=== PATIENT | female | born 1990 | race American Indian/Alaskan Native ===

== ENCOUNTER 2017-07-16 21:39 | Emergency (ER) | payer MEDICAID ==
[2017-07-16 23:29] LABS: Basophils % (Auto) 0.4 % (0.0-1.8); Eosinophils % (Auto) 2.5 % (0.0-4.3); Hematocrit 39.4 % (30.3-42.9); Hemoglobin 12.8 gm/dl (10.1-14.3); Mean Corpuscular HGB Conc 32 % (30-34); Mean Corpuscular Hemoglobin 26 pg (28-32); Mean Corpuscular Volume 81 fl (79-97); Platelet Count 270 K/mm3 (140-440); Red Blood Count 4.89 M/mm3 (3.65-5.03)
[2017-07-16 23:39] LABS: Anion Gap 18 mmol/L; BUN/Creatinine Ratio 12.85; Blood Urea Nitrogen 9 mg/dL (7-17); Calcium 9.1 mg/dL (8.4-10.2); Carbon Dioxide 23 mmol/L (22-30); Chloride 101.9 mmol/L (98-107); Glucose 100 mg/dL (65-100); Potassium 4.3 mmol/L (3.6-5.0); Sodium 139 mmol/L (137-145)
[2017-07-17 00:52] LABS: Bacteria,Urine 1+ /HPF (Negative); Bilirubin,Urine NEG (Negative); Blood,Urine NEG (Negative); Ketones,Urine TR mg/dL (Negative); Leukocyte Esterase,Urine NEG (Negative); Mucus,Urine 3+ /HPF; Nitrite,Urine NEG (Negative)
[2017-07-17 09:22] VITALS: BP 108/75
--- NOTE | 2017-07-17 10:06 | Emergency Department Report ---
ED General Adult HPI - General Chief complaint: Headache Stated complaint: POSS PREG/NAUSEA/STEPHENS/DIZZINESS Time Seen by Provider: 07/17/17 09:35 Source: patient Mode of arrival: Ambulatory Limitations: No Limitations - History of Present Illness Initial comments: Patient states that over the last 2 days she has had a right-sided headache. She's not had similar headaches like this before. She states that she has not gone to the physician or an emergency department for headaches in the past. However she tells me she has had an MRI and a CT of her head. She states this was done for sinus problems. The patient denies fever chills or photophobia neck stiffness or soreness. She has not had any focal neurological change. She states that she did not have an acute onset of the pain nor was it in anyway thunderclap. The headache is moderate claims she has never had a headache like this before. For some reason although the patient has an IUD. She believes she is having " symptoms". -: Gradual, days(s) Location: head Radiation: non-radiation Severity scale (0 -10): 0 Quality: aching Consistency: intermittent Improves with: none Worsens with: none Associated Symptoms: denies other symptoms Treatments Prior to Arrival: none - Related Data Previous Rx's Medication Instructions Recorded Last Taken Type Butalb/Acetamin/Caff 50-325-40 1 tab PO Q6HR PRN #14 tab 07/17/17 Unknown Rx [Fioricet] Allergies Allergy/AdvReac Type Severity Reaction Status Date / Time shellfish derived Allergy Swelling Verified 11/15/14 23:49 ED Review of Systems ROS: Stated complaint: POSS PREG/NAUSEA/STEPHENS/DIZZINESS Other details as noted in HPI Constitutional: denies: chills, fever Eyes: denies: eye pain, eye discharge, vision change ENT: denies: ear pain, throat pain Respiratory: denies: cough, shortness of breath, wheezing Cardiovascular: denies: chest pain, palpitations Endocrine: no symptoms reported Gastrointestinal: denies: abdominal pain, nausea, diarrhea Genitourinary: denies: urgency, dysuria, discharge Musculoskeletal: denies: back pain, joint swelling, arthralgia Skin: denies: rash, lesions Neurological: headache. denies: weakness, paresthesias Psychiatric: denies: anxiety, depression Hematological/Lymphatic: denies: easy bleeding, easy bruising ED Past Medical Hx - Past Medical History Previous Medical History?: Yes Hx Hypertension: No Hx Congestive Heart Failure: No Hx Diabetes: No Hx Deep Vein Thrombosis: No Hx Renal Disease: No Hx Sickle Cell Disease: No Hx Seizures: No Hx Asthma: No Hx COPD: No Hx HIV: No Additional medical history: chronic left ankle pain, Fx 2006 - Surgical History Past Surgical History?: Yes Hx Breast Surgery: Yes (reduction 2006) - Social History Smoking Status: Current Every Day Smoker Substance Use Type: None - Medications Home Medications: Home Medications Medication Instructions Recorded Confirmed Last Taken Type Butalb/Acetamin/Caff 50-325-40 1 tab PO Q6HR PRN #14 tab 07/17/17 Unknown Rx [Fioricet] ED Physical Exam - General Limitations: No Limitations General appearance: alert, in no apparent distress - Head Head exam: Present: atraumatic, normocephalic - Eye Eye exam: Present: normal appearance, PERRL, EOMI. Absent: scleral icterus - ENT ENT exam: Present: mucous membranes moist - Neck Neck exam: Present: normal inspection - Respiratory Respiratory exam: Present: normal lung sounds bilaterally. Absent: respiratory distress - Cardiovascular Cardiovascular Exam: Present: regular rate, normal rhythm. Absent: systolic murmur, diastolic murmur, rubs, gallop - GI/Abdominal GI/Abdominal exam: Present: soft, normal bowel sounds. Absent: distended, tenderness, guarding, rebound, rigid - Extremities Exam Extremities exam: Present: normal inspection - Back Exam Back exam: Present: normal inspection - Neurological Exam Neurological exam: Present: alert, oriented X3, CN II-XII intact, normal gait, other (cerebellar testing was normal). Absent: motor sensory deficit - Psychiatric Psychiatric exam: Present: normal affect, normal mood - Skin Skin exam: Present: warm, dry, intact, normal color. Absent: rash ED Course Vital Signs 07/16/17 07/17/17 07/17/17 22:42 03:32 05:17 Temperature 98.3 F 98.8 F 97.9 F Pulse Rate 89 83 68 Respiratory 18 18 18 Rate Blood Pressure 114/74 118/72 Blood Pressure 97/64 [Left] O2 Sat by Pulse 100 100 99 Oximetry 07/17/17 07/17/17 07/17/17 05:18 06:44 09:21 Temperature 98.7 F Pulse Rate 62 68 Respiratory 18 18 16 Rate Blood Pressure Blood Pressure 100/52 108/75 [Left] O2 Sat by Pulse 98 99 Oximetry - Reevaluation(s) Reevaluation #1: Patient is given Toradol. Her symptoms improved. Her CT showed no acute process. 07/17/17 12:22 ED Medical Decision Making - Lab Data Result diagrams: 07/16/17 23:16 07/16/17 23:16 Laboratory Results - last 24 hr 07/16/17 07/16/17 07/16/17 23:16 23:16 23:16 WBC 10.0 RBC 4.89 Hgb 12.8 Hct 39.4 MCV 81 MCH 26 L MCHC 32 RDW 15.0 Plt Count 270 Lymph % (Auto) 33.3 [place] % (Auto) 8.8 H Eos % (Auto) 2.5 Baso % (Auto) 0.4 Lymph # 3.3 [place] # 0.9 H Eos # 0.2 Baso # 0.0 Seg Neutrophils % 55.0 Seg Neutrophils # 5.5 Sodium 139 Potassium 4.3 Chloride 101.9 Carbon Dioxide 23 Anion Gap 18 BUN 9 Creatinine 0.7 Estimated GFR > 60 BUN/Creatinine Ratio 12.85 Glucose 100 Calcium 9.1 HCG, Qual Negative Urine Color Urine Turbidity Urine pH Ur Specific [place] Urine Protein Urine Glucose (UA) Urine Ketones Urine Blood Urine Nitrite Urine Bilirubin Urine Urobilinogen Ur Leukocyte Esterase Urine WBC (Auto) Urine RBC (Auto) U Epithel Cells (Auto) Urine Bacteria (Auto) Calcium Oxalate Crystal Urine Mucus 07/16/17 Unknown WBC RBC Hgb Hct MCV MCH MCHC RDW Plt Count Lymph % (Auto) [place] % (Auto) Eos % (Auto) Baso % (Auto) Lymph # [place] # Eos # Baso # Seg Neutrophils % Seg Neutrophils # Sodium Potassium Chloride Carbon Dioxide Anion Gap BUN Creatinine Estimated GFR BUN/Creatinine Ratio Glucose Calcium HCG, Qual Urine Color Yellow Urine Turbidity Clear Urine pH 5.0 Ur Specific [place] 1.034 H Urine Protein 30 mg/dl Urine Glucose (UA) Neg Urine Ketones Tr Urine Blood Neg Urine Nitrite Neg Urine Bilirubin Neg Urine Urobilinogen 2.0 Ur Leukocyte Esterase Neg Urine WBC (Auto) 3.0 Urine RBC (Auto) 3.0 U Epithel Cells (Auto) 5.0 Urine Bacteria (Auto) 1+ Calcium Oxalate Crystal 2+ Urine Mucus 3+ - Radiology Data Radiology results: report reviewed interpreted by me: Incidental intracranial cyst. No acute process. Critical care attestation.: If time is entered above; I have spent that time in minutes in the direct care of this critically ill patient, excluding procedure time. ED Disposition Clinical Impression: Cephalalgia Qualifiers: Headache type: other vascular headache Qualified Code(s): G44.1 - Vascular headache, not elsewhere classified Disposition: TO HOME OR SELFCARE Is pt being admited?: No Does the pt Need Aspirin: No Condition: Stable Instructions: Acute Headache (ED) Additional Instructions: Return any acute change or problem. Prescriptions: Butalb/Acetamin/Caff 50-325-40 [Fioricet] 1 tab PO Q6HR PRN #14 tab PRN Reason: Headache Referrals: PRIMARY CARE, [Primary Care Provider] - 3-5 Days DILAN SOFIA MD [Staff Physician] - 3-5 Days Time of Disposition: 12:23
[2017-07-17] MEDS ORDERED: TORADOL IM ONE (10:22)
--- NOTE | 2017-07-17 10:56 | Cat Scan Report ---
CT HEAD WITHOUT CONTRAST INDICATION: Right-sided headache. COMPARISON: None similar. FINDINGS: Noncontrast head CT demonstrates approximately 2.6 cm AP x transverse cyst between the mid body of the lateral ventricles and just above the third ventricle in the region of the cavum velum interpositum as on axial series 2, images 27-37. No hydrocephalus with normal remainder ventricles and sulci. No abnormal extra axial fluid collections. No acute or recent infarct or hemorrhage. Normal posterior fossa with preserved basilar cisterns. Normal imaged eye globes. Mild nasal septal deviation. Mild bilateral ethmoid sinusitis. Minimal right maxillary sinus mucosal thickening posteriorly may also be present. Clear remainder imaged paranasal sinuses and mastoid air cells. Normal calvarium and scalp. 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 Thank you for the opportunity to participate in this patient's care.
== END 2017-07-17 12:30 | disposition home or self-care (01) ==
LOC: ED 21:39
DX: G44.1 Vascular headache, not elsewhere classified (principal); F17.200 Nicotine dependence, unspecified, uncomplicated; G89.29 Other chronic pain; Z91.013 Allergy to seafood
CPT/HCPCS: 36415; 70450; 80048; 81001; 84703; 85025; 96372; 99284; J1885; 82962

== ENCOUNTER 2019-06-01 10:03 | Inpatient (IN) | payer MEDICAID ==
[2019-06-01] MEDS ORDERED: REGLAN IV SCH (12:46)
[2019-06-01] MEDS ORDERED: PEPCID IV SCH (12:46)
[2019-06-01] MEDS ORDERED: BICITRA PO SCH (12:46)
[2019-06-01] MEDS ORDERED: LACTATED RINGERS 1,000 ML ONE (12:48)
[2019-06-01] MEDS ORDERED: LACTATED RINGERS 1,000 ML IV SCH (13:00)
[2019-06-01] MEDS ORDERED: ANCEF/STERILE WATER 2 GM/20 ML 2 GM/20 ML SYRINGE IV NR (13:00)
[2019-06-01] MEDS ORDERED: PITOCin/NS 20 UNIT/1000ML DRIP 20 UNITS/1,000 ML BAG IV SCH ×2 (13:00→17:00)
[2019-06-01 13:12] LABS: Basophils % (Auto) 0.3 % (0.0-1.8); Eosinophils # (Auto) 0.3 K/mm3 (0.0-0.4); Eosinophils % (Auto) 3.3 % (0.0-4.3); Hematocrit 33.3 % (30.3-42.9); Hemoglobin 10.9 gm/dl (10.1-14.3); Lymphocytes # (Auto) 1.9 K/mm3 (1.2-5.4); Lymphocytes % (Auto) 23.9 % (13.4-35.0); Mean Corpuscular HGB Conc 33 % (30-34); Mean Corpuscular Volume 79 fl (79-97); Monocytes # (Auto) 0.7 K/mm3 (0.0-0.8); Monocytes % (Auto) 8.4 % (0.0-7.3); Platelet Count 198 K/mm3 (140-440); Red Blood Count 4.24 M/mm3 (3.65-5.03); Red Cell Distribution Width 14.3 % (13.2-15.2)
--- NOTE | 2019-06-01 13:21 | History and Physical Report ---
History of Present Illness Date of examination: 06/01/19 Date of admission: 06/01/19 10:03 Chief complaint: Scheduled Repeat C Section with BTL History of present illness: Pt is a 29yo BF EDC 06/04/19; EGA 39 4/7 weeks presents for a Repeat C Section with BTL. She received late care at [facility] since 29 weeks and co-managed by [facility] for Morbid Obesity, arrhythmia and previous C Section. records are available and GBS is Negative. Past History Past Medical History: other (Morbid obesity) Past Surgical History: breast surgery, section Family/Genetic History: heart disease, cancer - Obstetrical History Expected Date of Delivery: 06/04/19 Actual Gestation: 39 Week(s) 4 Day(s) : 1 Medications and Allergies Allergies Allergy/AdvReac Type Severity Reaction Status Date / Time shellfish derived Allergy Swelling Verified 11/15/14 23:49 Home Medications Medication Instructions Recorded Confirmed Last Taken Type Butalb/Acetamin/Caff 50-325-40 1 tab PO Q6HR PRN #14 tab 07/17/17 Unknown Rx [Fioricet] Active Meds: Active Medications Citric Acid/Sodium Citrate (Bicitra) 30 ml PO ONCE MAGGIE Stop: 06/01/19 23:00 Famotidine (Pepcid) 20 mg IV ONCE MAGGIE Stop: 06/01/19 23:00 Cefazolin Sodium (Ancef/Sterile Water 2 Gm/20 Ml) 2 gm in 20 mls @ 80 mls/hr IV PREOP NR; Protocol Stop: 06/01/19 23:00 Oxytocin/Sodium Chloride (Pitocin/Ns 20 Unit/1000ml Drip) 20 units in 1,000 mls @ 0 mls/hr IV TITR MAGGIE Lactated Ringer's (Lactated Ringers) 1,000 mls @ 2,250 mls/hr IV PREOP MAGGIE Stop: 06/02/19 13:27 Metoclopramide HCl (Reglan) 10 mg IV ONCE MAGGIE Stop: 06/01/19 23:00 Review of Systems All systems: negative - Vital Signs Vital signs: Vital Signs Pulse BP 90 125/70 06/01/19 12:30 06/01/19 12:30 Temp Pulse Resp BP Pulse Ox 90 125/70 06/01/19 12:30 06/01/19 12:30 - Physical Exam Cardiovascular: Regular rate Abdomen: Positive: normal appearance, soft Genitourinary (Female): Positive: normal external genitalia Uterus: Positive: enlarged Extremities: Positive: normal - Obstetrical FHR: category 1 Uterine Contraction Monitor Mode: External Uterine Contraction Pattern: Absent Results Result Diagrams: 06/01/19 12:30 All other labs normal. Assessment and Plan - Patient Problems (1) 39 weeks gestation of Onset Date: 06/01/19 Current Visit: No Status: Acute Plan to address problem: A: IUP @ 39 4/7 weeks Previous C Section Desires permanent sterilization P: Admit to L&D for Repeat C Section with BTL (2) Morbid obesity with body mass index of 50 or higher Onset Date: 06/01/19 Current Visit: No Status: Acute
[2019-06-01] MEDS ORDERED: NARCAN 0.4 MG/1 ML IV PRN ×2 (13:45→16:51)
[2019-06-01] MEDS ORDERED: PHENERGAN PR PRN (13:45)
[2019-06-01] MEDS ORDERED: PHENERGAN PO PRN (13:45)
[2019-06-01] MEDS ORDERED: DILAUDID IV PRN ×2 (13:45)
[2019-06-01] MEDS ORDERED: ZOFRAN IV PRN (13:45)
[2019-06-01] MEDS ORDERED: BENADRYL IV PRN (13:45)
--- NOTE | 2019-06-01 13:45 | Anesthesia Day of Surgery ---
Anesthesia Day of Surgery - Day of Surgery Patient Examined: Yes Patient H&P Reviewed: Yes Patient is NPO: Yes
--- NOTE | 2019-06-01 13:45 | Anesthesia Consultation ---
Anesthesia Consult and Med Hx Date of service: 06/01/19 - Airway Anesthetic Teeth Evaluation: Chipped (upper front) ROM Head & Neck: Adequate Mental/Hyoid Distance: Adequate Mallampati Class: Class III Intubation Access Assessment: Possibly Difficult - Pre-Operative Health Status ASA Pre-Surgery Classification: ASA3 Proposed Anesthetic Plan: Epidural, Spinal - Pulmonary Hx Smoking: Yes (quit at 2013) Hx Asthma: No COPD: No Hx Pneumonia: No - Cardiovascular System Hx Hypertension: No - Central Nervous System Hx Seizures: No Hx Psychiatric Problems: No - Endocrine Hx Renal Disease: No Hx End Stage Renal Disease: No Hx Hypothyroidism: No Hx Hyperthyroidism: No - Hematic Hx Anemia: No Hx Sickle Cell Disease: No - Other Systems Hx Alcohol Use: No Hx Obesity: Yes (BMI 50.5)
[2019-06-01] MEDS ORDERED: SODIUM CHLORIDE FLUSH SYRINGE 10 ML IV NR ×2 (14:00→17:00)
[2019-06-01] MEDS ORDERED: WATER FOR IRRIG STERILE IR ONE (14:35)
[2019-06-01] MEDS ORDERED: NACL 0.9% IR ONE (14:35)
[2019-06-01] MEDS ORDERED: DILAUDID ONE (15:16)
[2019-06-01] MEDS ORDERED: XYLOCAINE MPF 2% ONE ×2 (15:39)
[2019-06-01] MEDS ORDERED: NEO SYNEPHRINE/NS Syringe(OR USE) IV ONE (15:39)
--- NOTE | 2019-06-01 15:55 | Operative Report ---
Operative Report Operative Report: Date of procedure: 06/01/2019 Pre-operative diagnosis: 1. Intrauterine at 39-4/7 weeks 2. Previo us 3. Morbid obesity 4. Desires permanent sterilization Post-operative diagnosis: Same Procedure name(s): 1. Repeat low transverse section 2. Bilateral tubal ligation Surgeon: Chad Simpson MD Hamper Maker: None Anesthesia: Spinal anesthesia by CHALO Stein EBL: 700 mL Findings: A 3499 g female Apgars 8 at 1 minute and 9 at 5 minutes. Clear amniotic fluid. Normal uterus with lower uterine adhesions. Normal tubes and ovaries bilaterally. Procedure: After the patient was prepped and draped in usual sterile fashion, and after satisfactory level of epidural anesthesia was obtained, the skin knife was used to make a transverse skin incision through the previous skin scar. The incision was excised down to layer of the fascia, which was nicked in the mid line and extended laterally using the Bovie cautery. The rectus muscles were dissected off the rectus fascia both superiorly and inferiorly. The rectus bellies in the midline, and the peritoneum was entered under direct visualization. The peritoneal incision was extended superiorly and inferiorly. Extensive lower uterine adhesions were taken down using both sharp and blunt dissection. A bladder flap was created and the bladder blade was then placed. The uterus was scored in a curvilinear linear fashion, entered in the midline revealing clear amniotic fluid. The infant's head was delivered onto the surgical field with the aid of a vacuum, and the oropharynx and nasopharynx were bulb suctioned. The rest of the 's body was delivered, cord was doubly clamped and cut and the was handed to the waiting respiratory team. Cord blood was then obtained. The placenta was manually removed from the uterus, and the uterus removed from its normal anatomical position. After gentle uterine lavage, the incision was inspected and found to be without extensions. It was then closed in 2 layers using 0 Vicryl suture in a running interlocking fashion, the second layer imbricating the first. At this point, attention was turned to the tubal ligation. First the right fallopian tube was grasped using the [place], and after identifying the fimbriated end, a [place] clip was applied to the proximal portion of the tube. The same procedure was performed on the left fallopian tube. The tube was grasped using a [place], after first identifying the fimbriated end, a [place] clip was applied to the proximal portion of the tube. After good hemostasis was achieved, copious amounts or irrigation was performed, and the gutters were suctioned free of blood and blood clots. The Tisseel sealant was sprayed across the uterine incision. The uterus was then returned to its normal anatomical position, and after excellent hemostasis assured, the peritoneum was re-approximated using 3-0 Vicryl suture in a running interlocking fashion, and then the rectus muscles were re-approximated using 3-0 Vicryl suture in a [id number] configuration. The fascia was then re-approximated using 0 Vicryl suture in running interlocking fashion. The subcutaneous layer was made hemostatic using Bovie cautery, the Tisseel sealant was sprayed across the fascial incision and the skin edges re-approximated using 4-0 Vicryl suture in a sub-cuticular fashion. Patient tolerated the procedure well was transported to recovery in stable condition.
[2019-06-01] MEDS ORDERED: NORCO 5/325 PO PRN (16:51)
[2019-06-01] MEDS ORDERED: TYLENOL PO PRN (16:51)
[2019-06-01] MEDS ORDERED: SENOKOT PO PRN (16:51)
[2019-06-01] MEDS ORDERED: LANSINOH TP PRN (16:51)
[2019-06-01] MEDS ORDERED: TUCKS PAD TP PRN (16:51)
[2019-06-01] MEDS ORDERED: MYLICON PO PRN (16:51)
[2019-06-01] MEDS ORDERED: MILK OF MAGNESIA PO PRN (16:51)
[2019-06-01] MEDS ORDERED: ANCEF/NS 1 GM/50 ML 1 GM/50 ML BAG IV SCH (17:00)
[2019-06-01] MEDS: TORADOL IV PRN ×2 (17:04→23:30)
[2019-06-01] MEDS: D5LR 1,000 ML IV SCH (20:00)
--- NOTE | 2019-06-01 23:11 | Post Anesthesia Evaluation ---
- Post Anesthesia Evaluation Patient Participated: Yes Airway Patent: Yes Stable Respiratory Function: Yes Nausea/Vomiting: No Temp > 96.8F: Yes Pain Manageable: Yes Adequeate Hydration: Yes Anesthesia Complications: No Block Receding Appropriately: Yes Patient on Ventilator: No
[2019-06-02] MEDS: PERCOCET 5/325 PO PRN ×4 (02:48→20:28)
[2019-06-02] MEDS: D5LR 1,000 ML IV SCH (02:52)
[2019-06-02] MEDS: TORADOL IV PRN (05:28)
[2019-06-02 05:47] LABS: Hematocrit 25.9 % (30.3-42.9); Hemoglobin 8.6 gm/dl (10.1-14.3)
[2019-06-02] MEDS: FEOSOL PO SCH (08:10)
[2019-06-02] MEDS: PRENATAL VITAMIN PO SCH (08:10)
[2019-06-02] MEDS ORDERED: ANCEF/NS 1 GM/50 ML 1 GM/50 ML BAG IV SCH (08:30)
--- NOTE | 2019-06-02 08:46 | Progress Note ---
Assessment and Plan - Patient Problems (1) 39 weeks gestation of Onset Date: 06/01/19 Current Visit: No Status: Resolved (2) Morbid obesity with body mass index of 50 or higher Onset Date: 06/01/19 Current Visit: No Status: Chronic (3) Status post Onset Date: 06/02/19 Current Visit: No Status: Resolved Plan to address problem: A: S/P Repeat C Section with BTL - POD #1 Doing well Asymptomatic anemia - stable P: Continue RPOC Anticipate discharge in 24-48hrs Subjective - Subjective Date of service: 06/02/19 Principal diagnosis: s/p Repeat C Section with BTL - POD #1 Interval history: Pt is feeling well without complaints. Bleeding improved. She is tolerating a liquid diet without nausea or vomiting. Patient reports: appetite normal, voiding normally, pain well controlled, ambulating normally, no dizzy ambulation, no flatus, no nauseated : doing well, bottle feeding Objective - Vital Signs Latest vital signs: Vital Signs Temp Pulse Resp BP BP Pulse Ox 06/02/19 08:02 98.3 F 98 H 18 111/69 98 06/02/19 05:28 20 06/02/19 05:18 97.8 F 95 H 20 123/75 99 06/02/19 02:48 20 06/01/19 23:46 98.7 F 98 H 20 142/76 99 06/01/19 23:30 20 06/01/19 21:28 98.2 F 89 18 131/80 99 06/01/19 20:02 20 06/01/19 17:29 98.7 F 93 H 18 117/63 06/01/19 16:56 98.5 F 92 H 14 136/91 100 06/01/19 16:45 89 16 142/88 100 06/01/19 16:30 88 15 133/75 100 06/01/19 16:15 98 H 17 118/58 100 06/01/19 16:00 97 H 18 119/62 100 06/01/19 15:59 98.5 F 106 H 20 112/66 100 06/01/19 13:19 99.0 F 06/01/19 12:30 90 125/70 Intake and Output 06/01/19 06/02/19 06/02/19 22:59 06:59 14:59 Intake Total 1200 1338.333 Output Total 600 1400 Balance 600 -61.667 Intake: IV 1200 858.333 D5lr 1,000 ml @ 125 mls/ 858.333 hr IV DIRECT MAGGIE Rx#: [id number] Oral 480 Output: Urine 600 1400 Indwelling Catheter 1400 Uretheral (Heart) 200 Other: Total, Intake Amount 240 Total, Output Amount 800 Estimated Blood Loss 700 - Exam Breasts: Present: deferred Cardiovascular: Present: Regular rate Lungs: Present: Clear to auscultation Abdomen: Present: normal appearance, soft Uterus: Present: normal, firm, fundal height below umbilicus Extremities: Present: normal Incision: Present: normal, dry, intact, dressed - Labs Labs: Abnormal lab results 06/01/19 06/02/19 Range/Units 12:30 05:36 Hgb 8.6 L (10.1-14.3) gm/dl Hct 25.9 L D (30.3-42.9) % MCH 26 L (28-32) pg [place] % (Auto) 8.4 H (0.0-7.3) % Laboratory Tests 06/01/19 06/01/19 06/02/19 12:30 12:30 05:36 WBC 7.9 RBC 4.24 Hgb 10.9 8.6 L Hct 33.3 25.9 L D MCV 79 MCH 26 L MCHC 33 RDW 14.3 Plt Count 198 Lymph % (Auto) 23.9 [place] % (Auto) 8.4 H Eos % (Auto) 3.3 Baso % (Auto) 0.3 Lymph # 1.9 [place] # 0.7 Eos # 0.3 Baso # 0.0 Seg Neutrophils % 64.1 Seg Neutrophils # 5.0 Hep Bs Antigen Rubella IgG Antibody Blood Type B POSITIVE Antibody Screen Negative 06/02/19 06/02/19 05:36 05:36 WBC RBC Hgb Hct MCV MCH MCHC RDW Plt Count Lymph % (Auto) [place] % (Auto) Eos % (Auto) Baso % (Auto) Lymph # [place] # Eos # Baso # Seg Neutrophils % Seg Neutrophils # Hep Bs Antigen Non-reactive Rubella IgG Antibody Immune Blood Type Antibody Screen
[2019-06-02] MEDS ORDERED: M-M-R II VACCINE SUB-Q ONE (16:53)
[2019-06-02] MEDS ORDERED: BOOSTRIX IM ONE (16:53)
[2019-06-02] MEDS: IBUPROFEN PO PRN (20:27)
[2019-06-03] MEDS: IBUPROFEN PO PRN ×3 (02:28→18:04)
[2019-06-03] MEDS: PERCOCET 5/325 PO PRN ×3 (02:28→18:03)
--- NOTE | 2019-06-03 08:59 | Progress Note ---
Assessment and Plan - Patient Problems (1) 39 weeks gestation of Onset Date: 06/01/19 Current Visit: No Status: Resolved (2) Morbid obesity with body mass index of 50 or higher Onset Date: 06/01/19 Current Visit: No Status: Chronic (3) Status post Onset Date: 06/02/19 Current Visit: No Status: Resolved Plan to address problem: A: S/P Repeat C Section with BTL - POD #2 Doing well Asymptomatic anemia - stable P: May go home tomorrow. Subjective - Subjective Date of service: 06/03/19 Principal diagnosis: s/p Repeat C Section with BTL - POD #2 Interval history: Pt is feeling well without complaints. She is tolerating a reg diet without nausea or vomiting, ambulating and voiding without difficulty. Patient reports: appetite normal, voiding normally, pain well controlled, flatus, ambulating normally, no dizzy ambulation, no nauseated [place]: doing well, nursing well, bottle feeding Objective - Vital Signs Latest vital signs: Vital Signs Temp Pulse Resp BP Pulse Ox 06/03/19 02:28 18 06/03/19 00:42 98.1 F 95 H 20 122/66 100 06/02/19 20:28 20 06/02/19 20:27 20 06/02/19 15:49 102 H 100 06/02/19 15:48 97.8 F 104 H 18 108/65 98 06/02/19 11:27 97.3 F L 94 H 18 115/71 98 Intake and Output 06/02/19 06/03/19 06/03/19 22:59 06:59 14:59 Intake Total 240 480 Balance 240 480 Intake: Oral 240 480 Other: Total, Intake Amount 240 240 # Voids Void 1 1 - Exam Breasts: Present: deferred Abdomen: Present: normal appearance, soft Uterus: Present: normal, firm, fundal height below umbilicus Extremities: Present: normal Incision: Present: normal, dry, intact
[2019-06-03] MEDS: PRENATAL VITAMIN PO SCH (11:21)
[2019-06-03] MEDS: FEOSOL PO SCH (11:22)
[2019-06-04] MEDS: IBUPROFEN PO PRN (01:07)
[2019-06-04] MEDS: PERCOCET 5/325 PO PRN ×2 (01:41→09:37)
--- NOTE | 2019-06-04 08:40 | Discharge Summary ---
Providers - Providers Date of Admission: 06/01/19 10:03 Date of discharge: 06/04/19 Attending physician: WILMAR GROSSMAN Primary care physician: WILMAR GROSSMAN Hospitalization Reason for admission: section, IUP at term Delivery: Procedure: section, bilateral tubal ligation, repeat low transverse Episiotomy: none Laceration: none Incision: normal, dry, intact Other procedures: tubal ligation complications: none Discharge diagnosis: IUP at term delivered [place] baby: female Hospital course: Pt is a 29yo BF EDC 06/04/19; EGA 39 4/7 weeks who presented for a Repeat C Section with BTL. She received late care at [facility] since 29 weeks and co-managed by [facility] for Morbid Obesity, arrhythmia and previous C Section. She underwent an uncomplicated Repeat C Section with BTL and tolerated the procedure well. By POD #2 she was tolerating a reg diet without nausea or vomiting, ambulating and voiding without difficulty. She was therefore discharged to home on POD #3 in stable condition. Condition at discharge: Good Disposition: DC-01 TO HOME OR SELFCARE - Discharge Diagnoses (1) 39 weeks gestation of Status: Resolved (2) Morbid obesity with body mass index of 50 or higher Status: Chronic (3) Status post Status: Resolved Plan - Discharge Medications Prescriptions: Ferrous Sulfate [Feosol 325 MG tab] 325 mg PO BID #60 tablet Ibuprofen [Motrin 800 MG tab] 800 mg PO Q6H PRN #30 tablet PRN Reason: Pain, Mild (1-3) oxyCODONE /ACETAMINOPHEN [Percocet 5/325 mg] 1 tab PO Q6H PRN #30 tablet PRN Reason: Pain, Moderate (4-6) Vit-Fe Fumar-FA [ Vitamin] 1 each PO QDAY #30 tablet - Provider Discharge Summary Activity: routine, no sex for 6 weeks, no heavy lifting 4 weeks, no strenuous exercise Diet: routine Instructions: routine Additional instructions: [] Smoking cessation referral if applicable(refer to patient education folder for contact #) [] Refer to [facility] Booklet Call your doctor immediately for: * Fever > 100.5 * Heavy vaginal bleeding ( >1 pad per hour) * Severe persistent headache * Shortness of breath * Reddened, hot, painful area to leg or breast * Drainage or odor from incision. * Keep incision clean and dry at all times and follow doctor's instructions regarding bathing/showering - Follow up plan Follow up: WILMAR GROSSMAN MD [Primary Care Provider] - 14 Days RENAN SIMMONS CNM [Advanced Practice Nurse] - 14 Days
[2019-06-04] MEDS: FEOSOL PO SCH (09:35)
[2019-06-04] MEDS: PRENATAL VITAMIN PO SCH (09:36)
[2019-06-04 12:29] VITALS: BP 118/70
== END 2019-06-04 13:45 | disposition home or self-care (01) | DRG 766 ==
LOC: APU 10:03 → OB 17:49
PROVIDERS: ADMIT Obstetrics & Gynecology; ATTEND Obstetrics & Gynecology
PROC: 10D00Z1 Extraction of Products of Conception, Low, Open Approach (ICD-10-PCS; principal; 2019-06-01)
PROC: 0UL70CZ Occlusion of Bilateral Fallopian Tubes with Extraluminal Device, Open Approach (ICD-10-PCS; 2019-06-01)
PROC: 3E0234Z Introduction of Serum, Toxoid and Vaccine into Muscle, Percutaneous Approach (ICD-10-PCS; 2019-06-02)
DX: O34.211 Maternal care for low transverse scar from previous cesarean delivery (principal); O90.81 Anemia of the puerperium; E66.01 Morbid (severe) obesity due to excess calories; O99.214 Obesity complicating childbirth; Z3A.39 39 weeks gestation of pregnancy; Z37.0 Single live birth; Z80.9 Family history of malignant neoplasm, unspecified; Z91.013 Allergy to seafood; Z79.899 Other long term (current) drug therapy
CPT/HCPCS: 36415; 85014; 85018; 85025; 86706; 86762; 86850; 86900; 86901; G0378; C9250; J0690; J1170; J1885; J2370; J2590; J2765; J7120; J7121